=== PATIENT | male | born 1950 ===

== ENCOUNTER 2024-10-29 07:13 | Inpatient (IN) ==
[~2024-10-29 07:13] MED LIST: HYDROmorphone 1 MG/1 ML SYRINGE IV PRN; Naloxone 0.4 mg VIAL 0.4 mg/ml 1 ml VIAL IV PRN; Ondansetron 4 mg VIAL 2 MG/ML 2 ml VIAL IV PRN; fentaNYL 100 mcg/2 ml 50 MCG/ML VIAL IV PRN
[2024-10-29] MEDS: Scopolamine 1 mg/72hr PATCH TRANSDERM ONE (07:56)
[2024-10-29] MEDS: Buffered Lidocaine 1% SYRIN 1 ml INTRADERM ONE (07:56)
[2024-10-29] MEDS ORDERED: ceFAZolin 2 GM PREMIX 2 GM/50 ML BAG ONE (07:58)
[2024-10-29] MEDS ORDERED: Propofol 10 MG/ML 20 ML BTL ONE (08:06)
[2024-10-29] MEDS ORDERED: Ondansetron 4 mg VIAL 2 MG/ML 2 ml VIAL ONE (08:06)
[2024-10-29] MEDS ORDERED: Dexamethasone IV 4 MG/ML VIAL 1 ml VIAL ONE ×2 (08:06→08:54)
[2024-10-29] MEDS: Lactated Ringers 1000 ml BAG 1,000 ML IV SCH ×2 (08:07→15:42)
[2024-10-29] MEDS ORDERED: fentaNYL 100 mcg/2 ml 50 MCG/ML VIAL ONE ×2 (08:08→08:54)
[2024-10-29] MEDS ORDERED: Midazolam 5 mg/5 ml VIAL 1 mg/ml 5 ml VIAL (5 mg) ONE (08:54)
[2024-10-29] MEDS ORDERED: Bupivacaine 0.5% SDV PF 30ML VIAL ONE ×2 (08:54→09:03)
[2024-10-29] MEDS ORDERED: Bupivacaine 0.25% SDV 30 ML ONE (08:55)
[2024-10-29 09:26] LABS: Rapid COVID-19 Molecular Undetected (Undetected)
[2024-10-29] MEDS ORDERED: Magnesium Hydroxide LIQ 30 ML UDC PO PRN (10:45)
[2024-10-29] MEDS ORDERED: Lactulose 30 ml UDC PO PRN (10:45)
[2024-10-29] MEDS ORDERED: Ondansetron 4 mg VIAL 2 MG/ML 2 ml VIAL IV PRN (10:45)
[2024-10-29] MEDS ORDERED: Sulfur Hexaflouride MICROSPHR 25 MG VIAL IV PRN (13:14)
[2024-10-29 14:59] LABS: ABS Lymphocytes 0.4 10^3/uL (1.0-4.8); ABS Monocytes 0.1 10^3/uL (0.0-1.1); ABS Neutrophils 4.1 10^3/uL (1.5-7.6); Eosinophil % 0.4 %; Hematocrit 25.3 % (38-53); Hemoglobin 8.5 g/dL (13.2-16.3); Lymphocyte % 8.1 %; Mean Corpuscular Hemoglobin 26.9 pg (27-33); Mean Corpuscular Hgb Conc 33.4 g/dL (31-36); Mean Corpuscular Volume 80.6 fL (80-97); Mean Platelet Volume 8.3 fL (7.5-11.2); Platelet Count 241 10^3/uL (150-450); Red Blood Count 3.14 10^6/uL (4.06-5.63); Red Cell Distribution Width 15.6 % (12-17); White Blood Count 4.6 10^3/uL (3.6-10.2)
[2024-10-29 15:14] LABS: Albumin 4.3 g/dL (3.2-5.2); Albumin/Globulin Ratio 2.2 (1-3); Creatinine, Serum 1.26 mg/dL (0.67-1.17); Potassium 3.6 mmol/L (3.5-5.0); Total Bilirubin 0.5 mg/dL (0.2-1.0); Total Protein 6.3 g/dL (6.4-8.9); eGFR CKD-EPI 59.5 (>60)
[2024-10-29 15:36] LABS: Folate 8.85 ng/mL (5.90-24.80)
[2024-10-29] MEDS: Acetaminophen IV 1 GM/100ML 1,000 MG/100 ML BAG IV ONE (15:44)
[2024-10-29] MEDS: ceFAZolin 2 GM PREMIX 2 GM/50 ML BAG IV SCH (18:07)
[2024-10-29] MEDS: Magnesium Hydroxide LIQ 30 ML UDC PO SCH (22:59)
[2024-10-29] MEDS: Ondansetron ODT 4 mg TAB 4 MG TAB PO PRN (23:12)
[2024-10-30] MEDS: Vitamin THERAPEUTIC TAB PO SCH (08:43)
[2024-10-30 08:52] LABS: ABS Lymphocytes 1.3 10^3/uL (1.0-4.8); ABS Monocytes 0.8 10^3/uL (0.0-1.1); ABS Neutrophils 4.8 10^3/uL (1.5-7.6); Eosinophil % 0.6 %; Hemoglobin 8.6 g/dL (13.2-16.3); Lymphocyte % 19.2 %; Mean Corpuscular Hemoglobin 27.3 pg (27-33); Mean Corpuscular Hgb Conc 34.3 g/dL (31-36); Mean Corpuscular Volume 79.5 fL (80-97); Platelet Count 242 10^3/uL (150-450); Red Blood Count 3.15 10^6/uL (4.06-5.63); Red Cell Distribution Width 15.5 % (12-17); White Blood Count 6.9 10^3/uL (3.6-10.2)
[2024-10-30] MEDS: Ferric Gluconate IV 250 MG in NS 0.9% 250 ml 200 ML IVPB ONE (10:16)
[2024-10-30] MEDS ORDERED: Dextrose 50% Syringe 50 ml 25 GM/50 ML SYRINGE IV PUSH PRN (10:33)
[2024-10-30] MEDS: PEG 3000 GI LAVAGE 1 GALLON PO ONE (16:00)
[2024-10-31 06:11] LABS: ABS Eosinophils 0.1 10^3/uL (0.0-0.5); ABS Lymphocytes 1.4 10^3/uL (1.0-4.8); ABS Monocytes 0.4 10^3/uL (0.0-1.1); ABS Neutrophils 3.3 10^3/uL (1.5-7.6); Eosinophil % 1.8 %; Hematocrit 23.3 % (38-53); Lymphocyte % 26.6 %; Mean Corpuscular Hemoglobin 27.5 pg (27-33); Mean Corpuscular Hgb Conc 34.4 g/dL (31-36); Mean Corpuscular Volume 79.9 fL (80-97); Mean Platelet Volume 8.2 fL (7.5-11.2); Nucleated Red Blood Cells % 0.1 %/100WBC (0.0-0.8); Platelet Count 244 10^3/uL (150-450); Red Blood Count 2.92 10^6/uL (4.06-5.63); Red Cell Distribution Width 15.4 % (12-17); White Blood Count 5.2 10^3/uL (3.6-10.2)
[2024-10-31 06:29] LABS: Calcium 8.7 mg/dL (8.6-10.3); Creatinine, Serum 1.21 mg/dL (0.67-1.17); Potassium 3.5 mmol/L (3.5-5.0); eGFR CKD-EPI 62.4 (>60)
[2024-10-31] MEDS: Lactated Ringers 1000 ml BAG 1,000 ML IV SCH (08:43)
[2024-10-31] MEDS: Ferric Gluconate IV 250 MG in NS 0.9% 250 ml 200 ML IVPB SCH (09:54)
[2024-10-31] MEDS ORDERED: Midazolam 10 mg/10 ml VIAL 1 mg/ml 10 ml VIAL (10 mg) ONE (15:02)
[2024-10-31] MEDS ORDERED: fentaNYL 100 mcg/2 ml 50 MCG/ML VIAL ONE (15:03)
[2024-10-31] MEDS ORDERED: ceFAZolin 2 GM PREMIX 2 GM/50 ML BAG IV SCH (17:00)
[2024-10-31] MEDS: KCL 20 MEQ/100 ML IVPREMIX 20 MEQ/100 ML BAG IV SCH (17:29)
[2024-11-01 06:02] LABS: Hematocrit 24.7 % (38-53); Hemoglobin 8.4 g/dL (13.2-16.3); Mean Corpuscular Hemoglobin 27.3 pg (27-33); Mean Corpuscular Hgb Conc 34.2 g/dL (31-36); Mean Corpuscular Volume 79.8 fL (80-97); Mean Platelet Volume 8.3 fL (7.5-11.2); Platelet Count 252 10^3/uL (150-450); Red Blood Count 3.09 10^6/uL (4.06-5.63); Red Cell Distribution Width 15.5 % (12-17); White Blood Count 5.1 10^3/uL (3.6-10.2)
[2024-11-01 06:22] LABS: Calcium 8.8 mg/dL (8.6-10.3); Creatinine, Serum 0.96 mg/dL (0.67-1.17); Magnesium 1.6 mg/dL (1.9-2.7); Potassium 3.5 mmol/L (3.5-5.0); eGFR CKD-EPI 82.4 (>60)
[2024-11-01 16:11] LABS: Carcinoembryonic Antigen 3.1 ng/mL (0.1-5.0)
[2024-11-02 05:53] LABS: Hematocrit 23.2 % (38-53); Hemoglobin 7.8 g/dL (13.2-16.3)
[2024-11-02 06:48] LABS: Calcium 8.8 mg/dL (8.6-10.3); Creatinine, Serum 1.02 mg/dL (0.67-1.17); Magnesium 1.6 mg/dL (1.9-2.7); Potassium 3.3 mmol/L (3.5-5.0); eGFR CKD-EPI 76.6 (>60)
[2024-11-02] MEDS: Iodixanol 320 (CONTRAST) 100 ML SDV IV ONE ×2 (14:21→14:44)
[2024-11-03 10:05] LABS: ABS Eosinophils 0.2 10^3/uL (0.0-0.5); ABS Monocytes 0.5 10^3/uL (0.0-1.1); ABS Neutrophils 4.5 10^3/uL (1.5-7.6); Eosinophil % 3.9 %; Hematocrit 25.7 % (38-53); Hemoglobin 8.8 g/dL (13.2-16.3); Lymphocyte % 16.4 %; Mean Corpuscular Hemoglobin 27.4 pg (27-33); Mean Corpuscular Volume 80.6 fL (80-97); Mean Platelet Volume 7.8 fL (7.5-11.2); Nucleated Red Blood Cells % 0.1 %/100WBC (0.0-0.8); Platelet Count 289 10^3/uL (150-450); Red Blood Count 3.19 10^6/uL (4.06-5.63); Red Cell Distribution Width 15.3 % (12-17); White Blood Count 6.3 10^3/uL (3.6-10.2)
[2024-11-03 10:49] LABS: Albumin/Globulin Ratio 2.2 (1-3); Calcium 9.1 mg/dL (8.6-10.3); Creatinine, Serum 1.17 mg/dL (0.67-1.17); Globulin 1.8 g/dL (2-4); Total Bilirubin 0.4 mg/dL (0.2-1.0); Total Protein 5.8 g/dL (6.4-8.9)
[2024-11-03] MEDS: Enoxaparin 40 MG/0.4 ML SYR SUBCUT SCH (22:16)
[2024-11-04 05:39] LABS: ABS Eosinophils 0.2 10^3/uL (0.0-0.5); ABS Lymphocytes 1.3 10^3/uL (1.0-4.8); ABS Monocytes 0.4 10^3/uL (0.0-1.1); ABS Neutrophils 2.9 10^3/uL (1.5-7.6); Eosinophil % 4.1 %; Hematocrit 24.3 % (38-53); Hemoglobin 8.3 g/dL (13.2-16.3); Lymphocyte % 26.9 %; Mean Corpuscular Hemoglobin 27.6 pg (27-33); Mean Corpuscular Volume 81.2 fL (80-97); Mean Platelet Volume 7.7 fL (7.5-11.2); Platelet Count 261 10^3/uL (150-450); Red Blood Count 2.99 10^6/uL (4.06-5.63); White Blood Count 4.8 10^3/uL (3.6-10.2)
[2024-11-04 06:45] LABS: Calcium 8.8 mg/dL (8.6-10.3); Creatinine, Serum 1.08 mg/dL (0.67-1.17); Potassium 4.1 mmol/L (3.5-5.0); eGFR CKD-EPI 71.6 (>60)
[2024-11-05 15:09] VITALS: BP 154/80
== END 2024-11-05 14:50 | disposition home or self-care (01) | DRG 493 ==
LOC: MEDTELE 07:13 → OR 07:13 → EDSTATUS 09:30 → SUATTDRO 10-31 10:45
PROVIDERS: ADMIT Orthopaedic Surgery; ATTEND Student in an Organized Health Care Education/Training Program

== ENCOUNTER 2024-11-13 10:11 | Inpatient (IN) ==
[~2024-11-13 10:11] MED LIST changes: +HYDROmorphone 0.5 MG/0.5 ML SYRINGE IV SLOW PU PRN; -HYDROmorphone 1 MG/1 ML SYRINGE IV PRN; -Ondansetron 4 mg VIAL 2 MG/ML 2 ml VIAL IV PRN; -fentaNYL 100 mcg/2 ml 50 MCG/ML VIAL IV PRN
[2024-11-13] MEDS ORDERED: Propofol 10 MG/ML 20 ML BTL ONE (11:59)
[2024-11-13] MEDS ORDERED: Lidocaine 2% PF 5 ML VIAL ONE (12:00)
[2024-11-13] MEDS ORDERED: fentaNYL 250 mcg/5 ml 50 MCG/ML 5 ml VIAL (250 MCG) ONE (12:00)
[2024-11-13] MEDS ORDERED: Midazolam 2 mg/2 ml VIAL 1 mg/ml 2 ml VIAL (2 mg) ONE (12:00)
[2024-11-13 12:12] LABS: Hematocrit 31.8 % (38-53); Hemoglobin 10.7 g/dL (13.2-16.3); Mean Corpuscular Hemoglobin 27.8 pg (27-33); Mean Corpuscular Hgb Conc 33.5 g/dL (31-36); Mean Corpuscular Volume 83.1 fL (80-97); Mean Platelet Volume 7.8 fL (7.5-11.2); Platelet Count 283 10^3/uL (150-450); Red Blood Count 3.83 10^6/uL (4.06-5.63); Red Cell Distribution Width 18.1 % (12-17); White Blood Count 6.2 10^3/uL (3.6-10.2)
[2024-11-13] MEDS: Lactated Ringers 1000 ml BAG 1,000 ML IV SCH (12:17)
[2024-11-13] MEDS: Buffered Lidocaine 1% SYRIN 1 ml INTRADERM ONE (12:17)
[2024-11-13] MEDS ORDERED: Heparin 5000 UNITS/ML 1 mL VIAL ONE (12:25)
[2024-11-13 12:57] LABS: Rapid COVID-19 Molecular Undetected (Undetected)
[2024-11-13] MEDS ORDERED: Bupivacaine 0.25% EPI 200,000 30 ML SDV ONE (13:08)
[2024-11-13] MEDS ORDERED: Lidocaine 4 MG/ML IV PREMIX 2,000 MG/500 ML BAG IV ONE (13:17)
[2024-11-13] MEDS ORDERED: Albumin Human 5% 12.5 GM/250 ML BTL IV ONE (13:28)
[2024-11-13] MEDS ORDERED: Dexamethasone IV 4 MG/ML VIAL 1 ml VIAL ONE (14:36)
[2024-11-13] MEDS ORDERED: Ondansetron 4 mg VIAL 2 MG/ML 2 ml VIAL ONE (14:36)
[2024-11-13] MEDS ORDERED: Esmolol 10 MG/ML 10 ML (100 mg) IV ONE (14:36)
[2024-11-13] MEDS ORDERED: Rocuronium 50 mg VIAL 10 mg/ml 5 ml VIAL (50 mg) ONE ×2 (14:59)
[2024-11-13] MEDS ORDERED: Acetaminophen IV 1 GM/100ML 1,000 MG/100 ML BAG IV ONE (17:04)
[2024-11-13] MEDS ORDERED: Dextrose 50% Syringe 50 ml 25 GM/50 ML SYRINGE IV PUSH PRN (18:15)
[2024-11-13] MEDS: Ertapenem 1 GM in NS 0.9% 50 ML IVPB ONE (20:07)
[2024-11-14] MEDS: Acetaminophen IV 1 GM/100ML 1,000 MG/100 ML BAG IV SCH (00:11)
[2024-11-14] MEDS: Enoxaparin 40 MG/0.4 ML SYR SUBCUT SCH (08:07)
[2024-11-14] MEDS: Ondansetron 4 mg VIAL 2 MG/ML 2 ml VIAL IV PRN (12:23)
[2024-11-17 05:20] VITALS: BP 140/69
== END 2024-11-17 11:15 | disposition home or self-care (01) | DRG 331 ==
LOC: AA 10:11 → SSU 20:18
PROVIDERS: ADMIT Surgery; ATTEND Surgery